=== PATIENT | male | born 1995 | race Caucasian/White ===

== ENCOUNTER 2025-06-20 00:55 | Emergency (ER) | payer MEDICAID, SELFPAY ==
--- NOTE | ~2025-06-20 | XR_ITS ---
Examination: XR knee RT min 4V Clinical History: R knee pain s/p fall tonight hyperextended recently also Comparison: None Technique: 4 views right knee Findings/impression: 1. No fracture, dislocation, or effusion right knee. Reviewed, dictated and finalized at location [facility]
[2025-06-20 00:56] VITALS: BP 145/79; PULSE 88; RESP 16; TEMP 36.8; O2SAT 97
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
[2025-06-20] MEDS: IBUPROFEN 400 MG TABLET 800 MG PO (01:28)
== END 2025-06-20 05:40 | disposition home or self-care (01) ==
PROVIDERS: Emergency Provider Registered Nurse
DX: S83.91XA Sprain of unspecified site of right knee, initial encounter (principal); X50.0XXA Overexertion from strenuous movement or load, initial encounter; Z59.00 Homelessness unspecified
CPT/HCPCS: 73564; 99283; A9270